=== PATIENT | male | born 1955 | race Caucasian/White ===

== ENCOUNTER 2017-04-02 11:23 | Outpatient (CLI) ==
[2016-06-26 08:53] VITALS: BMI 35.3
[2017-04-02 13:09] LABS: CHOL/HDL RATIO 4.5 (4.5-6.4)
== END 2017-04-02 11:24 | disposition home or self-care (01) ==
LOC: LAB 11:23
PROVIDERS: ATTEND Emergency Medicine
DX: E78.5 Hyperlipidemia, unspecified (principal)
CPT/HCPCS: 36415; 80061

== ENCOUNTER 2017-05-30 10:57 | Outpatient (CLI) ==
[2016-06-26 08:53] VITALS: BMI 35.3
[2017-05-30 11:29] LABS: BASOPHILS # (AUTO) 0.1 K/uL (0-0.2); BASOPHILS % (AUTO) 1.1 % (0.0-3.0); EOSINOPHILS # (AUTO) 0.3 K/ul (0.0-0.7); EOSINOPHILS % (AUTO) 4.8 % (0.0-7.0); HEMATOCRIT 41.3 % (42.0-52.0); HEMOGLOBIN 13.8 g/dl (14.0-18.0); IMMATURE GRANULOCYTE % (AUTO) 0.2 % (0.0-5.0); LYMPHOCYTES # (AUTO) 1.9 K/uL (0.60-3.4); LYMPHOCYTES % (AUTO) 30.3 (10.0-50.0); MEAN CORPUSCULAR HEMOGLOBIN 30.5 pg (27.0-31.0); MEAN CORPUSCULAR HGB CONC 33.4 (31.8-35.4); MEAN CORPUSCULAR VOLUME 91.4 fl (80.0-94.0); MONOCYTES # (AUTO) 0.6 K/uL (0.4-2.0); MONOCYTES % (AUTO) 9.1 (0-10); NEUTROPHILS # (AUTO) 3.4 K/ul (2.0-6.9); NEUTROPHILS % (AUTO) 54.5; PLATELET COUNT 225 10^3/uL (140-440); RED BLOOD COUNT 4.52 10^6/ul (4.70-6.10); WHITE BLOOD COUNT 6.28 K/ul (4.2-10.2)
--- NOTE | 2017-05-30 11:31 | DI ---
Exam: Three x-rays of the left hand. Comparison: None available. Reason for exam: Rheumatoid arthritis. FINDINGS: No acute fracture or malalignment. The joint spaces are relatively well maintained. The re is no significant arthrosis. No significant joint space narrowing. No abnormal soft tissue dens ities or radiopaque retained foreign bodies. Impression: No acute fracture or malalignment in the left hand
--- NOTE | 2017-05-30 11:31 | DI ---
EXAM: Radiographs, right hand HISTORY: Rheumatoid arthritis. COMPARISON: None available. TECHNIQUE: Three views. FINDINGS: Bone mineralization is normal. There is no fracture or dislocation. Mild marginal osteo phyte formation seen in the hand and wrist although the joint spaces are relatively preserved. No e rosive changes are seen. No focal soft tissue abnormality is seen. IMPRESSION: Mild osteoarthritis.
[2017-05-30 11:50] LABS: ALBUMIN 4.1 g/dL (3.4-5.0); ALBUMIN/GLOBULIN RATIO 1.21; ANION GAP 16.8; BILIRUBIN,TOTAL 0.7 mg/dL (0.00-1.20); BUN/CREATININE RATIO 12.22; CREATININE 0.9 mg/dL (0.60-1.10); POTASSIUM 3.8 mmol/L (3.5-5.1); TOTAL PROTEIN 7.5 g/dL (5.8-8.1)
[2017-05-30 12:35] LABS: ESR INTERNAL QC INTERNAL QC VALID
[2017-05-30 12:38] LABS: ERYTHROCYTE SEDIMENTATION RATE 20 mm/hr (0-15)
[2017-05-31 07:17] LABS: C-REACTIVE PROTEIN 3.4 mg/L (0.0-4.9); RHEUMATOID ARTHRITIS FACTOR < 10.0 IU/mL (0.0-13.9)
== END 2017-05-30 10:58 | disposition home or self-care (01) ==
LOC: RAD 10:57
PROVIDERS: ATTEND Internal Medicine Rheumatology
DX: M06.9 Rheumatoid arthritis, unspecified (principal); Z79.899 Other long term (current) drug therapy
CPT/HCPCS: 36415; 80053; 85025; 85651; 86140; 86200; 86430

== ENCOUNTER 2017-09-04 10:48 | Outpatient (CLI) ==
[2016-06-26 08:53] VITALS: BMI 35.3
[2017-09-04 11:11] LABS: BASOPHILS # (AUTO) 0.1 K/uL (0-0.2); BASOPHILS % (AUTO) 0.8 % (0.0-3.0); EOSINOPHILS # (AUTO) 0.3 K/ul (0.0-0.7); EOSINOPHILS % (AUTO) 4.2 % (0.0-7.0); HEMATOCRIT 37.2 % (42.0-52.0); HEMOGLOBIN 12.6 g/dl (14.0-18.0); IMMATURE GRANULOCYTE % (AUTO) 0.4 % (0.0-5.0); LYMPHOCYTES # (AUTO) 2.1 K/uL (0.60-3.4); LYMPHOCYTES % (AUTO) 28.6 (10.0-50.0); MEAN CORPUSCULAR HEMOGLOBIN 31.8 pg (27.0-31.0); MEAN CORPUSCULAR HGB CONC 33.9 (31.8-35.4); MEAN CORPUSCULAR VOLUME 93.9 fl (80.0-94.0); MONOCYTES # (AUTO) 0.5 K/uL (0.4-2.0); NEUTROPHILS # (AUTO) 4.4 K/ul (2.0-6.9); PLATELET COUNT 242 10^3/uL (140-440); RED BLOOD COUNT 3.96 10^6/ul (4.70-6.10); WHITE BLOOD COUNT 7.44 K/ul (4.2-10.2)
[2017-09-04 12:09] LABS: ERYTHROCYTE SEDIMENTATION RATE 49 mm/hr (0-15); ESR INTERNAL QC INTERNAL QC VALID
[2017-09-04 12:24] LABS: ALBUMIN 3.7 g/dL (3.4-5.0); ALBUMIN/GLOBULIN RATIO 1.03; ANION GAP 15.2; BILIRUBIN,TOTAL 0.84 mg/dL (0.00-1.20); BUN/CREATININE RATIO 12.98; CALCIUM 9.8 mg/dL (8.2-10.2); CHOL/HDL RATIO 4.1 (4.5-6.4); CREATININE 0.77 mg/dL (0.60-1.10); POTASSIUM 4.2 mmol/L (3.5-5.1); TOTAL PROTEIN 7.3 g/dL (5.8-8.1)
== END 2017-09-04 10:49 | disposition home or self-care (01) ==
LOC: LAB 10:48
PROVIDERS: ATTEND Internal Medicine Rheumatology
DX: M06.9 Rheumatoid arthritis, unspecified (principal); I10 Essential (primary) hypertension; I25.118 Atherosclerotic heart disease of native coronary artery with other forms of angina pectoris; M05.761 Rheumatoid arthritis with rheumatoid factor of right knee without organ or systems involvement; M05.762 Rheumatoid arthritis with rheumatoid factor of left knee without organ or systems involvement
CPT/HCPCS: 36415; 80053; 80061; 84443; 85025; 85651; 86140

== ENCOUNTER 2017-12-06 07:37 | Outpatient (CLI) ==
[2016-06-26 08:53] VITALS: BMI 35.3
== END 2017-12-06 07:38 | disposition home or self-care (01) ==
LOC: LAB 07:37
PROVIDERS: ATTEND Emergency Medicine
DX: I25.118 Atherosclerotic heart disease of native coronary artery with other forms of angina pectoris (principal); I10 Essential (primary) hypertension; E78.5 Hyperlipidemia, unspecified; M05.761 Rheumatoid arthritis with rheumatoid factor of right knee without organ or systems involvement; M05.762 Rheumatoid arthritis with rheumatoid factor of left knee without organ or systems involvement; D50.8 Other iron deficiency anemias; Z12.5 Encounter for screening for malignant neoplasm of prostate
CPT/HCPCS: 36415; 80053; 80061; 82607; 82728; 82746; 83540; 83550; 84443; 84466; 85025; 85045; 85651

== ENCOUNTER 2018-03-08 07:46 | Outpatient (CLI) ==
[2016-06-26 08:53] VITALS: BMI 35.3
== END 2018-03-08 07:47 | disposition home or self-care (01) ==
LOC: LAB 07:46
PROVIDERS: ATTEND Emergency Medicine
DX: I25.118 Atherosclerotic heart disease of native coronary artery with other forms of angina pectoris (principal); I10 Essential (primary) hypertension; K21.9 Gastro-esophageal reflux disease without esophagitis
CPT/HCPCS: 36415; 80053; 80061; 84443; 85025

== ENCOUNTER 2018-07-30 15:14 | Outpatient (CLI) ==
[2016-06-26 08:53] VITALS: BMI 35.3
== END 2018-07-30 15:15 | disposition home or self-care (01) ==
LOC: RHC-LAB 15:14
PROVIDERS: ATTEND General Practice
DX: I25.118 Atherosclerotic heart disease of native coronary artery with other forms of angina pectoris (principal); I10 Essential (primary) hypertension; K21.9 Gastro-esophageal reflux disease without esophagitis; M05.761 Rheumatoid arthritis with rheumatoid factor of right knee without organ or systems involvement; G62.9 Polyneuropathy, unspecified; Z79.899 Other long term (current) drug therapy
CPT/HCPCS: 36415; 80053; 80061; 81001; 85025

== ENCOUNTER 2018-11-13 08:06 | Emergency (ER) | payer OTHER ==
[2018-11-13 08:15] VITALS: BP 138/74; TEMP 97.2; BMI 36.6
--- NOTE | 2018-11-13 08:39 | ED.PDOC ---
General ED Provider: Dr. SANTA WOODY Chief Complaint: Abdominal Pain Stated Complaint: intermittent pain anterior to the bladder percieved as a burning and space occupying sensation.No relation to urination,Recent Hx of bladre Ca with cystoscopy,clear now according to the urologist last week. Time Seen by Physician: 11:54 Mode of Arrival: Walk-In Information Source: Patient Exam Limitations: No limitations Primary Care Provider: CARSON ALLEN Referred to ED by: Other Nursing and Triage Documentation Reviewed and Agree: Yes Does patient meet sepsis criteria?: No System Inflammatory Response Syndrome: Not Applicable Sepsis Protocol: For patient's 13 years and over: Temp is 96.8 and below OR 101 and greater Pulse >90 BPM Resp >20/minute Acutely Altered Mental Status Are patient's symptoms suggestive of a new infection, such as: -Pneumonia -Skin, Soft Tissue -Endocarditis -UTI -Bone, Joint Infection -Implantable Device -Acute Abdominal Infection -Wound Infection -Meningitis -Blood Stream Catheter Infection -Unknown Complaint Exam - Complaint/Exam Onset/Duration: actual pain locating to LLQ and precystic-pubic aea.May radiate to the scr Symptoms Are: Still present Timing: Intermittent Initial Severity: Mild Current Severity: Mild Location of Pain: Reports: Suprapubic Character: Reports: Burning, Cramping Aggravating: Reports: Straining Alleviating: Reports: None Associated Signs and Symptoms: Reports: Abdominal Pain Related History: Reports: Similar episode Testicular Torsion Risk Factors: Reports: None Surgical Obstruction Risk Factors: Reports: None Related Surgical History: Reports: Cystoscopy Abdominal Findings: Present: None Differential Diagnoses: Cancer Review of Systems - Review Of Systems Constitutional: Reports: No symptoms Eyes: Reports: No symptoms Ears, Nose, Mouth, Throat: Reports: No symptoms Respiratory: Reports: No symptoms Cardiac: Reports: No symptoms GI: Reports: No symptoms : Reports: No symptoms Musculoskeletal: Reports: No symptoms Skin: Reports: No symptoms Neurological: Reports: No symptoms Endocrine: Reports: No symptoms Hematologic/Lymphatic: Reports: No symptoms All Other Systems: Reviewed and Negative Past Medical History - Past Medical History Endocrine: Reports: None Cardiovascular: Reports: None Respiratory: Reports: None Hematological: Reports: None Gastrointestinal: Reports: GERD Genitourinary: Reports: None Neuro/Psych: Reports: None Musculoskeletal: Reports: Arthritis Cancer: Reports: None Other Pertinent Past Medical History: eczema - Surgical History General Surgical History: Reports: Orthopedic (KNEE SCOPES), Other (RHINOPLASTY) - Family History Family History: Reports: Heart (note family history) - Social History Smoking Status: Former smoker Hx Substance Use: No Alcohol Screening: Occasionally Physical Exam - Physical Exam Appearance: Well-appearing Ill-appearing: None Pain Distress: Mild Eyes: MEJIA ENT: Ears normal Respiratory: Airway patent Cardiovascular: RRR GI/: Soft Musculoskeletal: Normal strength Skin: Warm Neurological: Sensation intact Interpretation - Radiology Interpretation Radiology Interpretation By: Radiologist Radiology Results: No acute changes Exam Interpreted: CT Scan Re-Evaluation - Re-Evaluation Time of Re-Evaluation: 11:13 Vital Signs Stable: Yes Appearance: NAD Lungs: Clear Skin: Warm and Dry Neuro: Alert and Oriented X3 CV: RRR - Re-Evaluation Time of Re-Evaluation: 11:33 Vital Signs Stable: Yes Pain Level: none to minimal Appearance: NAD Skin: Warm and Dry Neuro: Alert and Oriented X3 CV: RRR Additional Comments: C contrast showing no acute abd aortic intimal abnormality Critical Care Note - Critical Care Note Total Time (mins): 0 Course - Course Hematology/Chemistry: 11/13/18 09:20 11/13/18 09:20 Orders, Labs, Meds: Lab Review 11/13/18 11/13/18 11/13/18 09:20 09:20 09:20 WBC 6.28 RBC 3.81 L Hgb 11.9 L Hct 35.8 L MCV 94.0 MCH 31.2 H MCHC 33.2 RDW Coeff of Stephanie 13.3 Plt Count 197 Immature Gran % (Auto) 0.5 Neut % (Auto) 47.9 Lymph % (Auto) 38.5 [place] % (Auto) 8.4 Eos % (Auto) 3.7 Baso % (Auto) 1.0 Immature Gran # (Auto) 0.0 Neut # (Auto) 3.0 Lymph # (Auto) 2.4 [place] # (Auto) 0.5 Eos # (Auto) 0.2 Baso # (Auto) 0.1 D-Dimer (Manual) 783.60 Sodium 141.0 Potassium 4.02 Chloride 101.4 Carbon Dioxide 36.0 H Anion Gap 7.62 BUN 11.4 Creatinine 0.73 Estimated GFR (MDRD) 109.00 BUN/Creatinine Ratio 15.61 Glucose 94.9 Calcium 8.98 Total Bilirubin 0.58 AST 28.4 ALT 28.4 Alkaline Phosphatase 95.8 Total Protein 6.56 Albumin 3.55 Globulin 3.01 Albumin/Globulin Ratio 1.17 Urine Color Urine Clarity Urine pH Ur Specific [place] Urine Protein Urine Glucose (UA) Urine Ketones Urine Blood Urine Nitrite Urine Bilirubin Urine Urobilinogen Ur Leukocyte Esterase Urine Microscopic RBC Ur Squamous Epith Cells Urine Mucus 11/13/18 09:35 WBC RBC Hgb Hct MCV MCH MCHC RDW Coeff of Stephanie Plt Count Immature Gran % (Auto) Neut % (Auto) Lymph % (Auto) [place] % (Auto) Eos % (Auto) Baso % (Auto) Immature Gran # (Auto) Neut # (Auto) Lymph # (Auto) [place] # (Auto) Eos # (Auto) Baso # (Auto) D-Dimer (Manual) Sodium Potassium Chloride Carbon Dioxide Anion Gap BUN Creatinine Estimated GFR (MDRD) BUN/Creatinine Ratio Glucose Calcium Total Bilirubin AST ALT Alkaline Phosphatase Total Protein Albumin Globulin Albumin/Globulin Ratio Urine Color Yellow Urine Clarity Clear Urine pH 6.0 Ur Specific [place] <=1.005 Urine Protein Negative Urine Glucose (UA) Negative Urine Ketones Negative Urine Blood Trace-intact Urine Nitrite Negative Urine Bilirubin Negative Urine Urobilinogen 0.2 Ur Leukocyte Esterase Negative Urine Microscopic RBC 2-5 Ur Squamous Epith Cells Not present Urine Mucus 2+ Orders Category Date Time Status NPO REMINDER: IMAGING ONCE CARE 11/13/18 10:16 Active CBC W/ AUTO DIFF Stat LAB 11/13/18 09:20 Completed CMP [COMPREHENSIVE METABOLIC PANEL] Stat LAB 11/13/18 09:20 Completed CRP [C-REACTIVE PROTEIN] Stat LAB 11/13/18 09:20 Received D-DIMER Stat LAB 11/13/18 09:20 Completed URINALYSIS WITH MICROSCOPIC Stat LAB 11/13/18 09:[address] ABDOMEN/PELVIS W CONTRAST Stat RADS 11/13/18 10:[address] ABDOMEN/PELVIS WO CONTRAST Stat RADS 11/13/18 08:45 Completed Vital Signs: Temp Pulse Resp BP Pulse Ox 11/13/18 08:09 97.2 F L 50 L 18 138/74 98 Departure - Departure Time of Disposition: 11:51 Disposition: HOME SELF-CARE Discharge Problem: Cystitis Instructions: Pelvic Pain in Men (ED) Condition: Good Pt referred to PMD for follow-up: No (follow with the urologist PT going to next week.) IPMP verified?: No Allergies/Adverse Reactions: Allergies codeine Adverse Reaction (Mild, Verified 11/13/18 08:08) UPSET STOMACH Home Medications: Ambulatory Orders Famotidine 20 mg PO BID 04/02/17 Ascorbic Acid [Vitamin C] 500 mg PO BEDTIME #90 tab-cap 07/30/18 Aspirin [Aspirin Ec] 81 mg PO DAILY #90 tab-cap 07/30/18 Ferrous Sulfate [Iron] 325 mg PO BEDTIME #90 tab-cap 07/30/18 Folic Acid 1 mg PO DAILY #90 tab-cap 07/30/18 Methotrexate Sodium [Methotrexate] 2.5 mg PO WEEKLY #28 tab-cap 07/30/18 Dexlansoprazole [Dexilant] 30 mg PO ONCE 09/04/18 Nitroglycerin 0.4 mg SL DIRECTED PRN 11/13/18 Orphenadrine Citrate [Norflex] 100 mg PO DAILY PRN 11/13/18 Disposition Discussed With: Patient
--- NOTE | 2018-11-13 09:25 | CT ---
EXAM: CT of the abdomen pelvis without contrast History: Abdominal pain and swelling, cramping, history of bladder cancer. Comparison: CT abdomen pelvis 05/31/2014 Technique: Multiplanar CT images through the abdomen pelvis were obtained without the administration of IV contrast Findings: Lung bases are clear. No acute osseous abnormalities. No discrete gallstones identified by CT. No focal liver or splenic lesions. No peripancreatic infla mmation. Adrenal glands are unremarkable. No renal stones and no hydronephrosis. No ureteral calcu li. 3.4 cm infrarenal abdominal aortic aneurysm previously measured 3.1 cm. Colonic diverticulosis. The appendix is not dilated. No free air and no ascites. 4.9 cm soft tissue density within the cec um near the ileocecal valve. Bladder is not well distended. No focal bladder wall thickening. Pros boyle is not enlarged. Fat-containing bilateral inguinal hernias. No perirectal inflammation. No pa thologically enlarged lymph nodes. Impression: 1. No acute intra-abdominal or pelvic process. 2. Colonic diverticulosis. 3. Slight interval increase in size of the 3.4 cm infrarenal abdominal aortic aneurysm previously me asuring 3.1 cm. 4. Soft tissue density within the cecum near the ileocecal valve is probably compact stool. Soft ti ssue mass cannot be completely excluded. Recommend correlation with colonoscopy if not recently perf ormed or repeat CT scan after cleansing of the colon.
--- NOTE | 2018-11-13 11:23 | CT ---
EXAM: CT ABDOMEN AND PELVIS HISTORY: Increasing diameter of the aorta TECHNIQUE: CT abdomen and pelvis with intravenous contrast. Images were reconstructed using 5 mm se ction thickness. Reformations were prepared. FINDINGS: Compared to 05/31/2014. There is moderate atherosclerotic disease. Fusiform aneurysmal caliber of the infrarenal aorta is pr esent measuring up to 3.3 cm compared to 2.7 cm on the prior study using similar measuring technique. This exam was performed in portal venous phase, not arterial, although no acute aortic intimal abno rmality is seen. The liver and spleen appear normal. Gallbladder, pancreas and adrenal glands appear normal. Probabl e tiny cyst of the left renal cortex. No hydronephrosis or evidence of ureteral obstruction. [place] h appears normal. Normal appendix and general bowel gas pattern. Mild to moderate distal colon dive rticulosis. Urinary bladder and prostate are within normal limits. Prominent fatty bilateral inguin al bones. The bones reveal moderate degenerative disc disease of the spine. Lung bases are free of acute infiltrate. No pneumoperitoneum. IMPRESSION: 1. Moderate atherosclerosis. Fusiform aneurysmal caliber of the infrarenal aorta measuring up to 3. 3 cm compared to 2.7 cm previously using similar measuring technique. 2. Diverticulosis of the colon.
== END 2018-11-13 12:06 | disposition home or self-care (01) ==
LOC: ED 08:06
DX: N30.90 Cystitis, unspecified without hematuria (principal); Z85.51 Personal history of malignant neoplasm of bladder
CPT/HCPCS: 36415; 80053; 81001; 85025; 85379; 86140; 99283

== ENCOUNTER 2018-12-30 09:50 | Day surgery (SDC) | payer OTHER ==
[2018-12-30 10:18] VITALS: TEMP 97
[2018-12-30] MEDS ORDERED: LIDOCAINE 1% 20 ML MDV ID STA (10:19)
[2018-12-30] MEDS ORDERED: SUBLIMAZE ONE (11:20)
[2018-12-30] MEDS ORDERED: DIPRIVAN 20 ML VIAL IVP ONE (11:20)
[2018-12-30] MEDS ORDERED: VERSED ONE (11:20)
[2018-12-30 12:01] VITALS: BP 119/65
--- NOTE | 2018-12-31 12:56 | OP ---
PROCEDURE: COLONOSCOPY. ENDOSCOPIST: Billy DIETRICH M.D. INDICATION: ABDOMINAL PAIN. INSTRUMENT: PC-190. MEDICATION: PER ANESTHESIA. PROCEDURE: The patient was positioned for colonoscopy. The digital rectal exam was negative. The colonoscope was inserted through the anus and advanced to the cecum. [place] Bowel Prep Score 2+2+2 = 6 The prep was fair. The patient did not drink all of his prep. Diverticulosis in the left colon. Retroflex exam otherwise normal. Withdrawal time 6 minutes. PLAN: 1. Repeat in 3 years with extra prep at that time. [facility]
== END 2018-12-30 12:35 | disposition home or self-care (01) ==
LOC: SURG 09:50
PROVIDERS: ATTEND Internal Medicine Gastroenterology
DX: R10.9 Unspecified abdominal pain (principal); K57.90 Diverticulosis of intestine, part unspecified, without perforation or abscess without bleeding

== ENCOUNTER 2019-05-20 06:40 | Outpatient (CLI) | END 2019-05-20 06:41 | disposition home or self-care (01) | LOC: LAB 06:40 | PROVIDERS: ATTEND Emergency Medicine | DX: Z79.899 Other long term (current) drug therapy (principal); Z12.5 Encounter for screening for malignant neoplasm of prostate | CPT/HCPCS: 36415; 80053; 80061; 84443; 85027 ==